=== PATIENT | female | born 1980 | race Caucasian/White ===

== ENCOUNTER 2018-05-24 20:11 | Emergency (ER) | END 2018-05-24 21:04 | disposition home or self-care (01) ==

== ENCOUNTER 2018-08-10 11:52 | Emergency (ER) | payer BC ==
[~2018-08-10] VITALS: Ht 167.6 cm; Wt 59.1 kg
[~2018-08-10 11:52] MED LIST: ACET325T45 PO; HYDR-4011 PO; IBUP-1542 PO; IBUP-1544 PO; PHEN177S43 MT
[2018-08-10 12:02] VITALS: Ht 167.6 cm; Wt 59.1 kg
[2018-08-10] MEDS ORDERED: morphine 2 MG INJ IV STA (13:07)
[2018-08-10] MEDS ORDERED: ONDANSETRON 4 MG INJ IV STA (13:07)
[2018-08-10] MEDS ORDERED: SOD CHLORIDE 0.9% 1,000 ML IV STA (13:07)
--- NOTE | 2018-08-10 13:10 | ERD ---
ER Documentation Chief Complaint Chief Complaint Complains of abdominal pain x 3 days HPI 37-year-old female, previously healthy, presents the emergency department, complaining of worsening of abdominal pain that started 3 days ago, while the patient was visiting [facility], the pain is located in the periumbilical area, radiating to the right lower quadrant, associated with subjective fever, chills and nausea. Last p.o. 10 AM today. ROS All systems reviewed and are negative except as per history of present illness. Medications Home Meds Active Scripts Ciprofloxacin Hcl* (Ciprofloxacin Hcl*) 250 Mg Tablet, 250 MG PO BID for 3 Days, #6 TAB Prov:BRYAN CHICAS MD 08/10/18 Acetaminophen* (Tylenol*) 325 Mg Tablet, 2 TAB PO Q8 PRN for PAIN AND OR ELEVATED TEMP, #20 TAB Prov:BRYAN CHICAS MD 08/10/18 Hydrocodone/Acetaminophen ([place] 5-325 Tablet) 1 Each Tablet, 1 TAB PO Q6H PRN for PAIN, #7 TAB Prov:ARMANDO FRAGOSO 04/05/16 Ibuprofen* (Motrin*) 600 Mg Tab, 600 MG PO Q6, #30 TAB Prov:ARMANDO FRAGOSO 04/05/16 Acetaminophen* (Acetaminophen*) 325 Mg Tablet, 975 MG PO Q8 PRN for PAIN AND OR ELEVATED TEMP, #30 TAB Prov:AMANDA GUSTAFSON DO 10/15/15 Ibuprofen* (Ibuprofen*) 800 Mg Tablet, 800 MG PO Q8, #14 TAB Prov:AMANDA GUSTAFSON DO 10/15/15 Phenol* (Chloraseptic* [place]) 177 Ml [place].pump, 2 SPRAY MT Q2H PRN for SORE THROAT, #1 BOTTLE Prov:AMANDA GUSTAFSON DO 10/15/15 Allergies Allergies: Coded Allergies: No Known Drug Allergies (Verified Allergy, Unknown, 08/10/18) PMhx/Soc History of Surgery: Yes (Cholecystectomy) Anesthesia Reaction: No Hx Neurological Disorder: No Hx Respiratory Disorders: No Hx Cardiac Disorders: No Hx Psychiatric Problems: No Hx Miscellaneous Medical Probl: Yes (Sore Throat) Hx Alcohol Use: No Hx Substance Use: No Hx Tobacco Use: No Smoking Status: Never smoker Physical Exam Vitals Vital Signs Date Temp Pulse Resp B/P (MAP) Pulse Ox O2 O2 Flow FiO2 Time Delivery Rate 08/10/18 98.5 80 18 119/75 98 Room Air 16:13 (90) 08/10/18 99.6 82 20 124/76 97 12:02 (92) Physical Exam Const: No acute distress Head: Atraumatic Eyes: Normal Conjunctiva ENT: Normal External Ears, Nose and Mouth. Neck: Full range of motion. No meningismus. Resp: Clear to auscultation bilaterally Cardio: Regular rate and rhythm, no murmurs Abd: Guarded, with significant tenderness of the right lower quadrant, no masses. Skin: No petechiae or rashes Back: No midline or flank tenderness Ext: No cyanosis, or edema Neur: Awake and alert Psych: Normal Mood and Affect Result Diagram: 08/10/18 1320 08/10/18 1320 Results 24 hrs Laboratory Tests Test 08/10/18 13:14 08/10/18 13:20 Urine Color STRAW Urine Clarity CLEAR Urine pH 7.0 Urine Specific [place] 1.006 Urine Ketones NEGATIVE mg/dL Urine Nitrite NEGATIVE mg/dL Urine Bilirubin NEGATIVE mg/dL Urine Urobilinogen NEGATIVE mg/dL Urine Leukocyte Esterase NEGATIVE Ling/ul Urine Hemoglobin NEGATIVE mg/dL Urine Glucose NEGATIVE mg/dL Urine Total Protein NEGATIVE mg/dl POC Beta HCG, Qualitative NEGATIVE White Blood Count 9.3 10^3/ul Red Blood Count 4.98 10^6/ul Hemoglobin 15.7 g/dl Hematocrit 45.6 % Mean Corpuscular Volume 91.6 fl Mean Corpuscular Hemoglobin 31.5 pg Mean Corpuscular Hemoglobin Concent 34.4 g/dl Red Cell Distribution Width 11.6 % Platelet Count 291 10^3/UL Mean Platelet Volume 9.1 fl Immature Granulocytes % 0.400 % Neutrophils % 73.0 % Lymphocytes % 17.6 % Monocytes % 8.4 % Eosinophils % 0.3 % Basophils % 0.3 % Nucleated Red Blood Cells % 0.0 /100WBC Immature Granulocytes # 0.040 10^3/ul Neutrophils # 6.8 10^3/ul Lymphocytes # 1.6 10^3/ul Monocytes # 0.8 10^3/ul Eosinophils # 0.0 10^3/ul Basophils # 0.0 10^3/ul Nucleated Red Blood Cells # 0.0 10^3/ul Sodium Level 140 mmol/L Potassium Level 4.0 mmol/L Chloride Level 98 mmol/L Carbon Dioxide Level 31 mmol/L Anion Gap 11 Blood Urea Nitrogen 10 mg/dl Creatinine 0.56 mg/dl Est Glomerular Filtrat Rate mL/min > 60 mL/min Glucose Level 100 mg/dl Calcium Level 9.8 mg/dl Total Bilirubin 0.7 mg/dl Direct Bilirubin 0.00 mg/dl Indirect Bilirubin 0.7 mg/dl Aspartate Amino Transf (AST/SGOT) 32 IU/L Alanine Aminotransferase (ALT/SGPT) 43 IU/L Alkaline Phosphatase 64 IU/L Total Protein 8.7 g/dl Albumin 4.8 g/dl Globulin 3.90 g/dl Albumin/Globulin Ratio 1.23 Lipase 56 U/L Current Medications Medications Dose Sig/Kenan Start Time Status Last (Trade) Ordered Route PRN Stop Time Admin Dose Reason Admin Sodium 1,000 ml @ Q1H STAT 08/10/18 DC 08/10/18 Chloride 1,000 mls/hr IV 13:07 08/10/18 13:24 14:06 Morphine 2 mg ONCE STAT 08/10/18 DC 08/10/18 Sulfate IV 13:07 08/10/18 13:24 (morphine) 13:12 Ondansetron 4 mg ONCE STAT 08/10/18 DC 08/10/18 HCl (Zofran IV 13:07 08/10/18 13:23 Inj) 13:12 200 ml @ ONCE ONCE 08/10/18 DC 08/10/18 Ciprofloxacin 200 mls/hr IVPB 14:30 08/10/18 14:34 / Dextrose 15:29 Patient: RACHEAL OCASIO : 1980 Age: 37 Sex: F [id number] DOS: 08/10/18 1307 Ordering MD: BRYAN CHICAS MD Location: [facility] Room/Bed: PROCEDURE: CT ABDOMEN AND PELVIS WITHOUT CONTRAST. CLINICAL INDICATION: Right lower quadrant abdominal pain TECHNIQUE: CT scan of the abdomen and pelvis without contrast was performed on a multidetector high-resolution CT scanner. The patient was scanned without intravenous contrast. Coronal and sagittal reformatted images were obtained from the axial source images. Images were reviewed on a high-resolution PACS workstation. The total exam CTDI equals 6.4 mGy and the total exam DLP equals 331 mGy-cm. One or more of the following dose reduction techniques were used: Automated exposure control. Adjustment of the mA and/or kV according to patient size. Use of iterative reconstruction technique. DICOM images are available COMPARISON: None FINDINGS: CT abdomen: The lung bases are clear. The heart size is within normal limits. There is no significant pericardial effusion. Hepatic morphology is within normal limits. No gross contour deforming masses. The gallbladder is not visualized. Status post cholecystectomy. No evidence of intrahepatic or extrahepatic biliary dilatation. The spleen and pancreas are within normal limits. Both adrenal glands are within normal limits. Both kidneys are in normal anatomic position. No evidence of obstruction or hydronephrosis. No gross renal/ureteric calculi. The visualized GI tract demonstrates stool filled loops of large bowel. Several fluid-filled loops of small bowel are identified which are mildly distended. The appendix is within normal limits. The unenhanced aorta is unremarkable. There is no significant retroperitoneal lymphadenopathy. CT pelvis: The bladder is within normal limits. The uterus is unremarkable. The rectosigmoid colon demonstrates stool. No significant free fluid. No same pelvic lymphadenopathy. There is a small amount of nonspecific free fluid and mesenteric stranding within the right lower quadrant. The visualized osseous structures, appears to be within normal limits. IMPRESSION: 1. No evidence of bowel obstruction. The appendix is within normal limits. Several fluid filled loops of mildly distended small bowel which may represent gastroenteritis and mild ileus. 2. Small amount of nonspecific free fluid and mesenteric stranding within the right lower quadrant which may represent self-contained inflammation such as omental infarct. 3. No other evidence of free fluid or free air. No gross focal fluid collections. 4. Stool filled loops of large bowel suggestive of constipation. 5. Status post cholecystectomy. RPTAT: AAPP Physician Ammon Date Time Electronically viewed and signed by Physician Ammon on 08/10/2018 14:15 JL/ Procedures/MDM Physical exam unremarkable, patient in no distress, hydrated, adequate oral intake, abdomen, soft, nontender, no peritoneal signs. Differential diagnosis include but not limited to: gastrointestinal infection bacterial/viral, UTI, appendicitis, colitis, food poisoning, food intolerance. Low suspicion for acute abdomen Physical examination and clinical presentation consistent most likely with gastroenteritis. During the ED course the patient remained stable, overall improvement of the symptoms after receiving treatment in the emergency department with IV fluids, IV medications and ciprofloxacin. Clinical impression discussed with the patient who agrees with management. The patient is stable to be discharged home, Some side effects of prescribed m edications (headache, rash, nausea, vomiting, diarrhea, interactions with other medications) were reviewed. The patient requires a follow up with the primary care provider in the next 48h. If symptoms persist, worsen or new symptoms develop, then patient should return to the ED immediately. Disclaimer: Inadvertent spelling and grammatical errors are likely due to EHR/dictation software use and do not reflect on the overall quality of patient care. Also, please note that the electronic time recorded on this note does not necessarily reflect the actual time of the patient encounter. Departure Diagnosis: Primary Impression: Gastroenteritis Condition: Stable Additional Instructions: Muchas mark anthony por [facility] para aguilar servicio. Esperamos que en aguilar visita a la alexis de emergencia aguilar problema medico haya sido solucionado y que se sienta mucho mejor. Para estar seguros que aguilar mejoria sigue en proceso, le pedimos el favor de hacer antonette warren de seguimiento medico con aguilar doctor primario en los proximos 2-4 jin. Lleve con usted estos documentos y las medicinas recetadas. Si jose luis sintomas empeoran, NO SE ESPERE, por favor regrese a alexis de emergencia INMEDIATAMENTE. En amanda que usted no tenga un mdico de atencin primaria: Llame al mdico o clnica comunitaria de referencia que aparece abajo sherlyn las horas de consultorio para hacer antonette warren para que le vean. CLINICAS: [facility] [phone] [facility] 007 [phone] [facility] [phone] [facility] [phone] [facility] [phone] [facility] [phone] BRYAN DONOHUE MD Aug 10, 2018 13:10
[2018-08-10] MEDS ORDERED: CIPROFLOXACIN 400MG/D5W 200 ML IVPB ONE (14:30)
[2018-08-10] MEDS ORDERED: CIPR-193 PO (15:35)
[2018-08-10] MEDS ORDERED: ACET325T33 PO (15:35)
[2018-08-10 16:13] VITALS: BP 119/75; PULSE 80; RESP 18
== END 2018-08-10 16:06 | disposition home or self-care (01) ==
LOC: FTE 11:52
DX: K52.9 Noninfective gastroenteritis and colitis, unspecified (principal)
CPT/HCPCS: 36415; 74176; 80053; 81003; 81025; 83690; 85025; 96361; 96365; 96375; 99285; J0744; J2270; J2405; J7030